=== PATIENT | female | born 1995 | race Caucasian/White ===

== ENCOUNTER 2020-08-18 13:57 | Emergency (ER) | payer OTHER ==
[~2020-08-18] VITALS: Ht 160 cm; Wt 56.8 kg
[~2020-08-18 13:57] MED LIST: BIRTH CONTROL
[2020-08-18 15:18] VITALS: BP 134/78
[2020-08-18 15:49] LABS: COVID AG,FIA SOURCE NASOPHARYNGEAL
== END 2020-08-18 15:35 | disposition home or self-care (01) ==
LOC: EMS 14:36
DX: R09.81 Nasal congestion (principal); Z20.822 Contact with and (suspected) exposure to COVID-19
CPT/HCPCS: 87426; 99283; C9803; U0003

== ENCOUNTER 2025-05-18 19:44 | Inpatient (IN) | payer MEDICAID, OTHER ==
[~2025-05-18] VITALS: Ht 170.2 cm; Wt 74.9 kg
[2025-05-18] MEDS ORDERED: LORazepam 2 MG/ML VIAL ONE (20:18)
[2025-05-18] MEDS: LORazepam 2 MG/ML VIAL IM ONE (20:35)
[2025-05-18 21:29] LABS: COVID AG,FIA SOURCE NASAL SWAB
[2025-05-18 21:48] LABS: SARS-COV2 (COVID) ANTIGEN,FIA Negative (Negative)
[2025-05-18] MEDS ORDERED: ZOLPIDEM TARTRATE 10 MG TABLET PO PRN (22:00)
[2025-05-19 02:11] LABS: PLATELET COUNT (AUTO) 252 K/uL (150-450); RED BLOOD CELL COUNT(AUTO) 4.20 MIL/uL (4.00-5.20); RED CELL DISTRIBUTION WIDTH 15.8 % (11.5-14.5); WHITE BLOOD COUNT (AUTO) 4.9 K/uL (4.5-11.0)
[2025-05-19 02:20] LABS: CALCIUM, TOTAL 8.4 mg/dL (8.8-10.5); CREATININE 0.80 mg/dL (0.60-1.30); GLOMERULAR FILTR. RATE CALC > 60 mL/min (>60); GLUCOSE,RANDOM 87 mg/dL (70-110); SODIUM SERUM 141 mmol/L (136-145); UREA NITROGEN, BLOOD 22 mg/dL (7-18)
[2025-05-19 15:15] VITALS: O2SAT 99
[2025-05-19 16:29] VITALS: BP 114/75; PULSE 97; RESP 18; TEMP 98.6; O2SAT 99
[2025-05-19] MEDS ORDERED: INFLUENZA VIRUS VACCINE TVS (6MO+) 2025-26/PF 45 MCG/0.5 ML SYRINGE IM. ONE (17:30)
[2025-05-19 20:38] VITALS: RESP 16
[2025-05-20 08:00] VITALS: BP 106/79; PULSE 100; RESP 18; TEMP 98.3; O2SAT 99
[2025-05-20] MEDS: TOPIRAMATE 100 MG TABLET PO SCH (09:44)
[2025-05-20] MEDS ORDERED: DOCUSATE SODIUM 100 MG CAPSULE PO PRN (10:30)
[2025-05-20] MEDS ORDERED: OMEPRAZOLE 20 MG CAPSULE PO PRN (10:30)
[2025-05-20] MEDS ORDERED: MAGNESIUM HYDROXIDE SUSPENSION 30 ML UDCUP PO PRN (10:30)
[2025-05-20] MEDS ORDERED: MAG HYDROX/ALUMINUM HYD/SIMETH ES 30 ML SUSPENSION UDCUP PO PRN (10:30)
[2025-05-20] MEDS ORDERED: ALBUTEROL SULFATE HFA 90 MCG/PUFF 8 GM INHALER IH PRN (10:30)
[2025-05-20] MEDS ORDERED: ONDANSETRON 4 MG TABLET PO PRN (10:30)
[2025-05-20] MEDS ORDERED: PETROLATUM,WHITE 28 GM JELLY TP PRN (10:30)
[2025-05-20] MEDS ORDERED: BACITRACIN 28 GM OINTMENT TP PRN (10:30)
[2025-05-20] MEDS ORDERED: LOPERAMIDE HCL 2 MG CAPSULE PO PRN (10:30)
[2025-05-20] MEDS ORDERED: BENZOCAINE/MENTHOL [CEPACOL] LOZENGE PO PRN (10:30)
[2025-05-20] MEDS: POTASSIUM CHLORIDE 20 MEQ ER TABLET PO ONE (11:09)
[2025-05-20 20:25] VITALS: BP 114/71; PULSE 89; RESP 17; TEMP 97.8; O2SAT 100
[2025-05-21 08:17] VITALS: BP 97/67; PULSE 93; RESP 18; TEMP 98.4; O2SAT 100
[2025-05-21 20:25] VITALS: BP 103/81; PULSE 84; RESP 19; TEMP 98.1; O2SAT 98
[2025-05-22 08:38] VITALS: RESP 16
[2025-05-22 20:29] VITALS: BP 110/77; PULSE 88; RESP 17; TEMP 98; O2SAT 99
[2025-05-23 08:17] VITALS: RESP 17
[2025-05-23] MEDS ORDERED: LORazepam 2 MG/ML VIAL ONE (10:12)
[2025-05-23] MEDS: LORazepam 2 MG/ML VIAL IM ONE (11:03)
[2025-05-23 21:06] VITALS: BP 100/56; PULSE 91; RESP 16; TEMP 97; O2SAT 100
[2025-05-24 08:42] VITALS: BP 112/67; PULSE 89; RESP 18; TEMP 98.4; O2SAT 97
[2025-05-25 08:27] VITALS: BP 96/81; PULSE 69; RESP 17; TEMP 98.1; O2SAT 96
[2025-05-25 08:57] VITALS: BP 106/80; PULSE 71; RESP 18; TEMP 97.6; O2SAT 97
[2025-05-25] MEDS: MULTIVITAMINS WITH MINERALS, THERAPEUTIC TABLET PO SCH (08:59)
[2025-05-25 20:27] VITALS: BP 106/82; PULSE 88; RESP 17; TEMP 98.1; O2SAT 98
[2025-05-26 08:14] VITALS: RESP 18
[2025-05-26 20:30] VITALS: RESP 18
[2025-05-27 08:39] VITALS: RESP 17
[2025-05-27] MEDS ORDERED: LORazepam 2 MG/ML VIAL ONE (12:28)
[2025-05-27] MEDS: LORazepam 2 MG/ML VIAL IM ONE (12:41)
[2025-05-27 20:43] VITALS: RESP 18
[2025-05-28 08:44] VITALS: RESP 17
[2025-05-29 08:16] VITALS: RESP 16
[2025-05-30 08:41] LABS: PLATELET COUNT (AUTO) 310 K/uL (150-450); RED BLOOD CELL COUNT(AUTO) 4.66 MIL/uL (4.00-5.20); RED CELL DISTRIBUTION WIDTH 15.9 % (11.5-14.5); WHITE BLOOD COUNT (AUTO) 7.0 K/uL (4.5-11.0)
[2025-05-30 08:59] LABS: ASPARTATE AMINOTRANSFERASE 25 U/L (15-37); CALCIUM, TOTAL 8.8 mg/dL (8.8-10.5); CHOL/HDL RATIO 2.6 (3.9-5.7); CREATININE 0.88 mg/dL (0.60-1.30); GLOMERULAR FILTR. RATE CALC > 60 mL/min (>60); GLUCOSE,RANDOM 65 mg/dL (70-110); LDL CHOL (CALC.) 104 mg/dL (0-130); PHOSPHORUS 3.2 mg/dL (2.5-4.9); SODIUM SERUM 141 mmol/L (136-145); TOTAL PROTEIN, SERUM 7.8 g/dL (6.4-8.2); UREA NITROGEN, BLOOD 12 mg/dL (7-18)
[2025-05-30] MEDS ORDERED: RisperiDONE ER SUSPENSION 200 MG/0.56 ML PRE-FILLED SYRINGE SQ SCH (09:00)
[2025-05-30] MEDS ORDERED: LORazepam 2 MG/ML VIAL ONE (09:27)
[2025-05-30] MEDS ORDERED: LORazepam 2 MG/ML VIAL IM ONE (09:45)
[2025-05-30] MEDS: LORazepam 2 MG/ML VIAL IM ONE (10:37)
[2025-05-31 22:02] VITALS: RESP 17
[2025-05-31] MEDS: IBUPROFEN 600 MG TABLET PO PRN (22:04)
[2025-05-31] MEDS: BENZOCAINE 10% 7 GM GEL TP PRN (22:33)
[2025-05-31 23:00] VITALS: RESP 17
[2025-06-01 08:16] VITALS: RESP 16
[2025-06-01] MEDS: NICOTINE POLACRILEX 2 MG LOZENGE PO PRN (11:29)
[2025-06-01] MEDS: AMOXICILLIN TRIHYDRATE 500 MG CAPSULE PO SCH (12:21)
[2025-06-01] MEDS: ACETAMINOPHEN 325 MG TABLET PO PRN (14:11)
[2025-06-01 16:03] VITALS: RESP 16
[2025-06-01 17:06] VITALS: RESP 18
[2025-06-01 20:19] VITALS: BP 115/78; PULSE 68; RESP 17; TEMP 98.1; O2SAT 98
[2025-06-01 23:47] VITALS: RESP 20
[2025-06-02 00:44] VITALS: RESP 18
[2025-06-02 06:40] VITALS: RESP 18
[2025-06-02 13:33] VITALS: BP 101/69; PULSE 78; RESP 16; TEMP 97.2; O2SAT 99
[2025-06-02 19:16] VITALS: RESP 16
[2025-06-02 20:16] VITALS: RESP 16
[2025-06-02 21:06] VITALS: RESP 16
[2025-06-03] VITALS (7 sets, daily range): BP systolic 100–115; BP diastolic 69–70; PULSE 92–95; RESP 17–20; TEMP 98–98.2; O2SAT 100
[2025-06-03] MEDS ORDERED: TOPI100 PO (09:55)
[2025-06-03] MEDS ORDERED: RISP-31 PO (09:55)
== END 2025-06-03 13:12 | disposition home or self-care (01) | DRG 750 ==
LOC: EMS 19:44 → B3A 05-19 13:53
PROVIDERS: ADMIT Psychiatry & Neurology Psychiatry; ATTEND Psychiatry & Neurology Psychiatry
PROC: GZHZZZZ Group Psychotherapy (ICD-10-PCS; principal; 2025-05-19)
PROC: GZ52ZZZ Individual Psychotherapy, Cognitive (ICD-10-PCS; 2025-05-19)
DX: F31.2 Bipolar disorder, current episode manic severe with psychotic features (principal); Z78.1 Physical restraint status; F19.10 Other psychoactive substance abuse, uncomplicated; F10.10 Alcohol abuse, uncomplicated; Z20.822 Contact with and (suspected) exposure to COVID-19; F41.9 Anxiety disorder, unspecified; G47.00 Insomnia, unspecified; Y90.0 Blood alcohol level of less than 20 mg/100 ml; Z79.899 Other long term (current) drug therapy
CPT/HCPCS: 80048; 80053; 80061; 83036; 84100; 84443; 84703; 85025; 99285; G0480; J1200; J1630; J2060